=== PATIENT | female | born 2000 | race Caucasian/White ===

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

== ENCOUNTER → 2020-11-23 12:07 | Outpatient (CLI) | payer OTHER, SELFPAY ==
[2020-11-23 15:11] LABS: Absolute Lymphocyte Count 1.69 X10^3/uL (0.83-4.51); Absolute Neutrophil Count 2.8 X10^3/uL (2.0-7.7); Basophil# 0.03 X10^3/uL; Basophil% 0.6 % (0-1); Eosinophil# 0.01 X10^3/uL; Eosinophils% 0.2 % (0-5); Hematocrit 46.7 % (37-47); Hemoglobin 15.5 g/dL (12.0-15.0); Lymphocyte # 1.69 X10^3/ul (0.83-4.51); Mean Corp Hgb Conc 33.2 g/dL (32-36); Mean Corpuscular Hgb 30.3 pg (27.0-32.0); Mean Corpuscular Volume 91.4 fL (81-99); Mean Platelet Vol. 9.1 fl (6.2-12.0); Monocyte# 0.39 X10^3/uL; Monocyte% 7.8 % (0-10); NRBC Flagged by Analyzer 0 % (0-5); Neutrophil # 2.84 X10^3/uL (2.7-7.7); Neutrophil % 57.2 % (47-70); POSITIVE MORPHOLOGY YES; Platelet Count 188 K/mm3 (150-450); RBC Distribution Width CV 11.8 % (11.6-14.6); RBC Distribution Width SD 39.7 fl (35.1-43.9); Red Blood Count 5.11 M/mm3 (4.2-5.4)
[2020-11-23 15:34] LABS: Anion Gap 4 (5-15); BUN 9 mg/dL (7-18); BUN/Creat Ratio 11.9 RATIO (10-20); Calcium,Total 9.3 mg/dL (8.5-10.1); Chloride 104 mmol/L (98-107); Creatinine, Serum 0.75 mg/dL (0.55-1.02); EST Glomerular Filtration Rate 104 mL/min (>60); Est Glom Filt Rate - Afr Amer 126 mL/min (>60); Glucose 87 mg/dL (74-106); Potassium 4.6 mmol/L (3.5-5.1); Sodium Level 136 mmol/L (136-145); Thyroid Stim Hormone (TSH) 1.19 uIU/mL (0.358-3.74)
[2020-11-23 15:49] LABS: Differential Indicated SCAN CRITERIA MET
[2020-11-23 16:18] LABS: Atypical Lymphocyte 1+ %; Platelet Estimate ADEQUATE (ADEQ); Red Cell Morphology NORM C+C NORMAL (NORM C&C)
== END ==
PROVIDERS: Nurse Practitioner Family; PCP Family Medicine; Visit Provider Family Medicine
DX: R53.83 Other fatigue (principal)
CPT/HCPCS: 36415; 80048; 84443; 85025

== ENCOUNTER → 2023-07-06 | Outpatient (CLI) | payer OTHER, SELFPAY ==
--- NOTE | 2023-07-06 12:36 | RAD_ITS ---
STUDY: X-RAY - SACRUM/COCCYX REASON FOR EXAM: Female, 22 years old. Right lower back pain. TECHNIQUE: 3 view(s) of the sacrum and coccyx were obtained. COMPARISON: None. FINDINGS: Mild symmetrical erosive changes of both sacroiliac joints which may represent sacroiliitis. Normal visualized sacral ala and fused sacral bodies. Normal sacrococcygeal junction with a normal angulation. Normal coccygeal segments. The presacral soft tissue structures are normal. RAD/Sacrum-Coccyx min 2 Views IMPRESSION: Findings compatible with mild symmetrical sacroiliitis. No acute finding. Electronically Signed: Dorian Gutierrez MD at 13:41 EST ,
--- OUTSIDE RECORDS SUMMARY | 2023-07-06 19:45 | XMS RPT_ITS | CCD ---
Author Name Unknown Address [address] [place] [address] Organization [facility] Results Test Name Value Interpretation Reference Range Facil ity Progress note 03-14-2021 Note Date & Type Note Facility 03-14-2021 Note HNO ID: [id number] Author: Nathan Guillen PA-C Service: ? Author Type: Physician [facility] [employer] Type: Progress Notes Filed: 03/14/2021 10:02 AM Note Text: This note was created using Diabeticariter. Subjective Bon Hooper is a 20 year old female. HPI Presents with a 3-day h/o loss of smell and taste. Also c/o congestion. Multiple family members have cold-like symptoms. No past medical history on file. No past surgical history on file. ALLERGIES Patient has no known allergies. MEDICATIONS fkvdzjnajiMHLCY-zlgpxt-btllknslm (BMX 1:1:1) 1:1:1 liqd Mix in equal amounts - 1 T every 2hrs as needed for mouth pain, Swish/swallow or expectorate. (8oz) No family history on file. Social History Tobacco Use - Smoking status: Never Smoker - Smokeless tobacco: Never Used Substance Use Topics - Alcohol use: Not on file - Drug use: Not on file Review of Systems Constitutional: Positive for fatigue. Negative for chills, diaphoresis and fever. HENT: Negative for ear pain, postnasal drip, sinus pressure, sinus pain and sore throat. Respiratory: Positive for cough. Negative for shortness of breath. Cardiovascular: Negative for chest pain. Neurological: Positive for headaches. Negative for facial asymmetry and light-headedness. Objective BP 112/82 Pulse 99 Temp 37 ?C (98.6 ?F) (Left Tympanic) Resp 16 Wt 81.1 kg (178 lb 12.8 oz) LMP 04/06/2016 SpO2 98% Physical Exam Vitals and nursing note reviewed. Constitutional: General: She is not in acute distress. Appearance: Normal appearance. She is normal weight. She is not ill-appearing. HENT: Head: Normocephalic and atraumatic. Eyes: General: Right eye: No discharge. Left eye: No discharge. Cardiovascular: Rate and Rhythm: Normal rate and regular rhythm. Pulses: Normal pulses. Heart sounds: Normal heart sounds. Pulmonary: Effort: Pulmonary effort is normal. Breath sounds: Normal breath sounds. Abdominal: Palpations: Abdomen is soft. Neurological: General: No focal deficit present. Mental Status: She is alert. Psychiatric: Mood and Affect: Mood normal. Assessment and Plan ASSESSMENT/PLAN: 1. Viral illness - ICD9: 079.99, ICD10: B34.9 - Discussed viral etiology and rationale for treatment. - Symptomatic treatment with prn analgesia - Supportive care with fluids and rest - 2019 CORONAVIRUS Nathan Guillen PA-C [facility] Progress note 02-05-2021 Note Date & Type Note Facility 02-05-2021 Note HNO ID: [id number] Author: Vishnu Maguire APRN.RADIAGRAPH OPERATOR Service: ? Author Type: Nurse Practitioner Type: Progress Notes Filed: 02/05/2021 7:32 PM Note Text: Subjective HPI HPI Bon Hooper is a 20 year old female who presents today for CC of st, h/a. This started 2 days ago. Has tried otc medication for relief. Symptoms are worsened by swallowing. Risk factors hx of strep throat. Denies cough, congestion, fever, rash, loss taste/smell. Did not get covid vaccine. Denies possibility of being . nonsmoker. .Patient presents with: Sore Throat: ROBERTS, irritated throat x2 days No past medical history on file. No past surgical history on file. ALLERGIES Patient has no known allergies. MEDICATIONS predniSONE (DELTASONE) 20 mg tablet Take 2 tablets by mouth once daily for 5 days. esqqkmmaqmREQMA-wueibh-csbqdwels (BMX 1:1:1) 1:1:1 liqd Mix in equal amounts - 1 T every 2hrs as needed for mouth pain, Swish/swallow or expectorate. (8oz) No family history on file. Social History Tobacco Use - Smoking status: Never Smoker - Smokeless tobacco: Never Used Substance Use Topics - Alcohol use: Not on file - Drug use: Not on file ROS Objective Blood pressure 126/86, pulse 90, temperature 36.8 ?C (98.2 ?F), resp. rate 14, weight 82 kg (180 lb 12.8 oz), last menstrual period 04/06/2016, SpO2 97 %. Physical Exam Constitutional: General: She is not in acute distress. Appearance: She is not toxic-appearing or diaphoretic. HENT: Head: Normocephalic and atraumatic. Right Ear: Hearing and external ear normal. Left Ear: Hearing and external ear normal. Nose: Nose normal. Mouth/Throat: Pharynx: Uvula midline. No pharyngeal swelling, oropharyngeal exudate, posterior oropharyngeal erythema or uvula swelling. Eyes: General: Lids are normal. No scleral icterus. Right eye: No discharge. Left eye: No discharge. Conjunctiva/sclera: Conjunctivae normal. Pupils: Pupils are equal, round, and reactive to light. Neck: Trachea: Trachea normal. Cardiovascular: Rate and Rhythm: Normal rate and regular rhythm. Heart sounds: Normal heart sounds. Pulmonary: Effort: Pulmonary effort is normal. Breath sounds: Normal breath sounds. Musculoskeletal: Cervical back: Normal range of motion and neck supple. Lymphadenopathy: Cervical: No cervical adenopathy. Right cervical: No superficial cervical adenopathy. Left cervical: No superficial cervical adenopathy. Skin: Findings: No rash. Neurological: Mental Status: She is alert and oriented to person, place, and time. ASSESSMENT/PLAN: 1. Sore throat - ICD9: 462, ICD10: J02.9 - suspect viral - Alere Strep Test negative, no culture pending - Discussed supportive care treatment with fluids, rest and analgesia. - The patient should follow up in 3-5 days if symptoms persist or worsen - Call back if drooling, increased temperature, symptoms of dehydration and/or still sick in one week - STREP A MOLECULAR (POC) - PREDNISONE 20 MG TABLET - XOAQUZMTKBFNDIE-OJUKPEW-AEKYKASYE ([facility]) - 2019 CORONAVIRUS Agrees to plan Vishnu Maguire APRN.[place] [facility] Progress note 06-23-2020 Note Date & Type Note Facility 06-23-2020 Note HNO ID: [id number] Author: Omid Quan) Workman Service: ? Author Type: Nurse Practitioner Type: Progress Notes Filed: 06/23/2020 8:53 PM Note Text: Visit Date: June 23, 2020 Patient Name: Ms.Taylor Richmond Hooper Date of : 2000 MRN/E #: [id number] Chief Complaint Patient presents with: Throat Problem: swollen throat and tongue x 3 days History of present illness Bon Hooper is a 19 year old female. Presents with complaints of difficulty swallowing that started 3 days ago. She tested positive for strep 06/06 and finished her 10 day course of antibiotics. Her throat improved following the antibiotic therapy but her tonsils have remained swollen. She reports having difficulty swallowing further down her esophagus. She denies having any fever, chills, SOB, or difficulty breathing. She denies having any reflux or belching. PAIN EVALUATION No data found in the last 1 encounters. ALLERGIES No Known Allergies History reviewed. No pertinent past medical history. History reviewed. No pertinent surgical history. Social History Tobacco Use - Smoking status: Never Smoker - Smokeless tobacco: Never Used Substance Use Topics - Alcohol use: Not on file - Drug use: Not on file History reviewed. No pertinent family history. Review of Systems Constitutional: Negative for chills, fever and malaise/fatigue. HENT: Negative for congestion and sore throat. Difficulty swallowing Respiratory: Negative for cough. Cardiovascular: Negative for chest pain and palpitations. Gastrointestinal: Negative for abdominal pain, diarrhea, nausea and vomiting. Musculoskeletal: Negative for myalgias. Skin: Negative for itching and rash. Neurological: Negative for dizziness, tingling and headaches. Physical Exam Constitutional: She is oriented to person, place, and time and well-developed, well-nourished, and in no distress. HENT: Mouth/Throat: Uvula is midline and mucous membranes are normal. Posterior oropharyngeal edema present. No oropharyngeal exudate, posterior oropharyngeal erythema or tonsillar abscesses. Cardiovascular: Normal rate, regular rhythm and normal heart sounds. Pulmonary/Chest: Effort normal and breath sounds normal. Abdominal: She exhibits no distension. There is no abdominal tenderness. Lymphadenopathy: Head (right side): Tonsillar adenopathy present. No submental, no submandibular, no preauricular, no posterior auricular and no occipital adenopathy present. Head (left side): Tonsillar adenopathy present. No submental, no submandibular, no preauricular, no posterior auricular and no occipital adenopathy present. She has no cervical adenopathy. Neurological: She is alert and oriented to person, place, and time. Gait normal. Skin: Skin is warm and dry. Nursing note and vitals reviewed. BP 122/74 Pulse 100 Temp (Src) 97.8 (Tympanic) Resp 16 Wt 173 lb (78.5kg) SpO2 98% LMP 04/06/2016 Assessment/Plan (R13.13) Pharyngeal dysphagia (primary encounter diagnosis) -discussed red flags -anti-histamines for swelling and itchiness -recommend ENT follow for further evaluation -appt made for tomorrow for [facility] Omid Lomas APRN.[place] Discussed above plan with patient. Pt agreeable with above plan. [facility] Summary Purpose Family History No Family History Records Found Advance Directives No Advanced Directives Records Found Additional Source Comments INFORMATION SOURCE (unrecogn ized section and content) FOR RECORDS PERTAINING TO PATIENTS WHO ARE OR HAVE BEEN ENROLLED IN A CHEMICAL DEPENDENCY/SUBSTANCEABUSE PROGRAM, SOME INFORMATION MAY BE OMITTED. This clinical summary was aggregated from multiple sources. Caution should be exercised in using it in the provision of clinical care. This summary normalizes information from multiple sources, and as a consequence, information in this document may materially change the coding, format and clinical context of patient data. In addition, data may be omitted in some cases. CLINICAL DECISIONS SHOULD BE BASED ON THE PRIMARY CLINICAL RECORDS. [employer] provides no warranty or guarantee of the accuracy or completeness of information in this document.
== END | disposition home or self-care (01) ==
PROVIDERS: PCP Family Medicine; Referring Provider Family Medicine; Visit Provider Family Medicine
DX: M89.8X8 Other specified disorders of bone, other site (principal)
CPT/HCPCS: 72220

== ENCOUNTER → 2024-06-19 | Outpatient (CLI) | payer OTHER, SELFPAY ==
[2024-06-19 15:22] LABS: Absolute Lymphocyte Count 2.94 X10^3/uL (0.83-4.51); Absolute Neutrophil Count 3.2 X10^3/uL (2.0-7.7); Basophil# 0.04 X10^3/uL; Basophil% 0.6 % (0-1); Eosinophils% 1.5 % (0-5); Hemoglobin 15.1 g/dL (12.0-15.0); Lymphocyte # 2.94 X10^3/ul (0.83-4.51); Lymphocyte % 44.7 % (19-41); Mean Corp Hgb Conc 32.8 g/dL (32-36); Mean Corpuscular Hgb 30.9 pg (27.0-32.0); Mean Corpuscular Volume 94.1 fL (81-99); Mean Platelet Vol. 10.2 fl (6.2-12.0); Monocyte# 0.31 X10^3/uL; Monocyte% 4.7 % (0-10); NRBC Flagged by Analyzer 0 % (0-5); Neutrophil # 3.16 X10^3/uL (2.7-7.7); Neutrophil % 48.2 % (47-70); Platelet Count 223 K/mm3 (150-450); RBC Distribution Width CV 11.4 % (11.6-14.6); RBC Distribution Width SD 39.4 fl (35.1-43.9); Red Blood Count 4.89 M/mm3 (4.2-5.4); White Blood Count 6.6 K/mm3 (4.4-11.0)
[2024-06-19 15:57] LABS: Erythrocyte Sedimentation Rate 4 mm/hr (0-30)
[2024-06-19 15:59] LABS: ALB/GLOB Ratio 1.1 RATIO (0.9-2.4); AST(SGOT) 12 U/L (15-37); Alanine Aminotransfer ALT/SGPT 18 U/L (13-56); Albumin, Serum 4.1 g/dL (3.2-5.0); Alkaline Phosphatase 67 U/L (45-117); Anion Gap 8 (5-15); BUN 9 mg/dL (7-18); BUN/Creat Ratio 12.1 RATIO (10-20); CRP < 2.90 mg/L (0.0-3.0); Calcium,Total 9.6 mg/dL (8.5-10.1); Chloride 105 mmol/L (98-107); Creatinine, Serum 0.75 mg/dL (0.55-1.02); EST Glomerular Filtration Rate 102 mL/min (>60); Est Glom Filt Rate - Afr Amer 123 mL/min (>60); Globulin 3.9 g/dL (2.2-4.2); Glucose 83 mg/dL (74-106); Potassium 3.9 mmol/L (3.5-5.1); Sodium Level 138 mmol/L (136-145); T4 Free Direct 0.86 ng/dL (0.76-1.46)
[2024-06-21 14:08] LABS: Endomysial Antibody IgA Negative (Negative); Immunoglobulin A 234 mg/dL (87-352); t-Transglutaminase IgA <2 U/mL (0-3)
[2024-06-23 02:06] LABS: Calprotectin, Stool 15 ug/g (0-120)
== END | disposition home or self-care (01) ==
LOC: MTLAB 11:09
PROVIDERS: PCP Family Medicine; Referring Provider Family Medicine; Visit Provider Family Medicine
DX: E04.9 Nontoxic goiter, unspecified (principal); K58.9 Irritable bowel syndrome, unspecified
CPT/HCPCS: 80053; 82784; 83516; 83993; 84439; 84443; 85025; 85652; 86140; 86255; 87177; 87209; 87506

== ENCOUNTER → 2024-11-05 | Outpatient (CLI) | payer OTHER, SELFPAY ==
--- NOTE | 2024-11-05 08:15 | US_ITS ---
PROCEDURE: ABDOMEN LIMITED 11/05/2024 REASON FOR EXAM: BLOATING, PAIN AFTER EATING. TECHNIQUE: ABDOMEN LIMITED COMPARISON: None FINDINGS: Liver: Normal echogenicity. No discrete lesion. Liver measures 17.5 cm. Gallbladder: Distends normally without evidence of echogenic debris. No wall thickening, gallbladder wall measures 1.9 mm. No pericholecystic fluid or inflammation Common bile duct: Normal measuring 1.6. Pancreas: Normal Kidneys: The right kidney measures 10.0 x 5.0 x 4.4 cm no obstructive uropathy or suspicious solid renal lesion. US/Abdomen Limited IMPRESSION: No suspicious sonographic findings Reading Location: [id number]
--- NOTE | 2024-11-05 08:15 | US_ITS ---
PROCEDURE: ABDOMEN LIMITED 11/05/2024 REASON FOR EXAM: BLOATING, PAIN AFTER EATING. TECHNIQUE: ABDOMEN LIMITED COMPARISON: None FINDINGS: Liver: Normal echogenicity. No discrete lesion. Liver measures 17.5 cm. Gallbladder: Distends normally without evidence of echogenic debris. No wall thickening, gallbladder wall measures 1.9 mm. No pericholecystic fluid or inflammation Common bile duct: Normal measuring 1.6. Pancreas: Normal Kidneys: The right kidney measures 10.0 x 5.0 x 4.4 cm no obstructive uropathy or suspicious solid renal lesion. US/Abdomen Limited IMPRESSION: No suspicious sonographic findings Reading Location: [id number]
== END | disposition home or self-care (01) ==
LOC: OPUS 08:10 → US 08:11
PROVIDERS: PCP Family Medicine; Referring Provider Family Medicine; Visit Provider Family Medicine
DX: K58.9 Irritable bowel syndrome, unspecified (principal)
CPT/HCPCS: 76705

== ENCOUNTER 2024-12-31 14:11 | Outpatient (CLI) | payer OTHER, SELFPAY ==
[2025-01-05 02:06] LABS: Egg, Whole <0.10 kU/L (Class 0); Mussels <0.10 kU/L (Class 0)
== END 2024-12-31 23:59 | disposition home or self-care (01) ==
LOC: MFPLAB 14:12
PROVIDERS: PCP Family Medicine; Referring Provider Family Medicine; Visit Provider Family Medicine
DX: K58.9 Irritable bowel syndrome, unspecified (principal)
CPT/HCPCS: 36415; 86003; 86005

== ENCOUNTER → 2025-03-05 | Outpatient (CLI) | payer OTHER, SELFPAY ==
[2025-03-05 14:19] LABS: Hematocrit 43.8 % (37-47); Hemoglobin 15.0 g/dL (12.0-15.0); Mean Corp Hgb Conc 34.2 g/dL (32-36); Mean Corpuscular Volume 94.6 fL (81-99); Mean Platelet Vol. 9.9 fl (6.2-12.0); Platelet Count 228 K/mm3 (150-450); RBC Distribution Width CV 11.2 % (11.6-14.6); RBC Distribution Width SD 38.4 fl (35.1-43.9); Red Blood Count 4.63 M/mm3 (4.2-5.4); White Blood Count 6.9 K/mm3 (4.4-11.0)
[2025-03-05 14:58] LABS: Anion Gap 11 (5-15); BUN 11 mg/dL (4-19); BUN/Creat Ratio 20.9 RATIO (10-20); Calcium,Total 9.0 mg/dL (7.6-11.0); Carbon Dioxide 24.0 mmol/L (21.0-32.0); Chloride 102 mmol/L (98-108); Glucose 88 mg/dL (70-99); Potassium 3.4 mmol/L (3.3-5.1); Vitamin D,25 Hydroxy 26.2 ng/mL (30-100)
== END | disposition home or self-care (01) ==
LOC: MFPLAB 12:10
PROVIDERS: PCP Family Medicine; Visit Provider Family Medicine
DX: F41.9 Anxiety disorder, unspecified (principal)
CPT/HCPCS: 36415; 80048; 82306; 84443; 85027